=== PATIENT | male | born 1980 | race African-American/Black ===

== ENCOUNTER 2017-02-24 20:41 | Emergency (ER) | payer MEDICAID, OTHER ==
[~2017-02-24] VITALS: Ht 172.7 cm; Wt 105.0 kg
[2017-02-24] MEDS ORDERED: AZITHROMYCIN 500 MG TABLET PO ONE (21:15)
[2017-02-24] MEDS ORDERED: CEFTRIAXONE SODIUM 250 MG/VIAL IM ONE (21:15)
[2017-02-24] MEDS ORDERED: LIDOCAINE HCL 1% 20ML VIAL (Pyxis) INJ INFIL ONE (21:30)
[2017-02-24 22:37] VITALS: BP 138/85
== END 2017-02-24 22:39 | disposition home or self-care (01) ==
LOC: ER 21:12
DX: A64 Unspecified sexually transmitted disease (principal); J45.909 Unspecified asthma, uncomplicated
CPT/HCPCS: 96372; 99283; J0696; J3490

== ENCOUNTER 2017-09-19 17:22 | Emergency (ER) | payer MEDICAID ==
[~2017-09-19] VITALS: Ht 172.7 cm; Wt 107.0 kg
[2017-09-19 17:39] VITALS: BP 131/67
== END 2017-09-19 18:43 | disposition home or self-care (01) ==
LOC: ER 17:35
DX: J02.9 Acute pharyngitis, unspecified (principal); J45.909 Unspecified asthma, uncomplicated
CPT/HCPCS: 99283

== ENCOUNTER 2018-02-02 18:25 | Emergency (ER) | payer MEDICAID ==
[~2018-02-02] VITALS: Ht 162.6 cm; Wt 104.0 kg
[2018-02-02 19:03] VITALS: BP 148/85
== END 2018-02-02 22:00 | disposition left against medical advice (07) ==
LOC: ER 20:54
DX: N50.811 Right testicular pain (principal); R10.30 Lower abdominal pain, unspecified; J45.909 Unspecified asthma, uncomplicated; F12.10 Cannabis abuse, uncomplicated; F17.200 Nicotine dependence, unspecified, uncomplicated
CPT/HCPCS: 99281